=== PATIENT | female | born 1965 | race Caucasian/White ===

== ENCOUNTER 2018-12-07 21:07 | Inpatient (IN) ==
[2018-12-07] MEDS ORDERED: KETOROLAC 30 MG/1 ML VIAL IV STA (22:07)
[2018-12-07 22:13] LABS: Basophils # 0.1 10*3/uL (0.0-0.2); Basophils % 0.5 % (0.0-0.8); Eosinophils # 0.2 10*3/uL (0.0-0.87); Eosinophils % 1.7 % (0.00-10.9); Hematocrit 41.6 VOL% (35.7-47.0); Hemoglobin 13.7 GM/DL (12.0-16.0); Immature Granulocytes % 0.4 %; Immature Granulocytes Absolute 0.05 #; Lymphocytes # 2.6 10*3/uL (1.4-4.0); Lymphocytes % 23.2 % (21.3-54.2); Mean Corpuscular HGB Conc 32.9 GM/DL (32-36); Mean Corpuscular Volume 93.9 FL (87-102); Mean Platelet Volume 10.4 FL (9.6-12.0); Monocytes % 6.7 % (1.7-12.7); Neutrophils % 67.5 % (38.7-73.9); Platelet Count 258 T/CUMM (130-400); Red Blood Count 4.43 MC/CUMM (3.8-5.5); White Blood Count 11.1 T/CUMM (4-12)
[2018-12-07 22:25] LABS: Bilirubin,Total 0.4 MG/DL (0.2-1.0); Osmolality,Calculated 275.5 MOS/KG (273-304); Total Protein 7.7 G/DL (6.4-8.3)
[2018-12-08] MEDS ORDERED: metroNIDAZOLE INJ 500 MG in PREMIX 1 EACH IV ONE (01:23)
[2018-12-08] MEDS ORDERED: CEFEPIME 2,000 MG in SYRINGE 1 EACH IV ONE (01:23)
[2018-12-08] MEDS ORDERED: CEFEPIME 2,000 MG VIAL ONE (01:31)
[2018-12-08] MEDS ORDERED: SODIUM CHLORIDE 0.9% 100 ML IV ONE (01:31)
[2018-12-08] MEDS ORDERED: metroNIDAZOLE 500 MG/100 ML PREMIX IV ONE (01:31)
[2018-12-08] MEDS ORDERED: ONDANSETRON 4 MG/2 ML VIAL IV PRN (08:25)
[2018-12-08] MEDS ORDERED: ACETAMINOPHEN 325 MG TABLET PO PRN (08:25)
[2018-12-08] MEDS ORDERED: ACETAMINOPHEN 325 MG TABLET PO ONE (10:30)
[2018-12-08] MEDS: metroNIDAZOLE INJ 500 MG in PREMIX 1 EACH IV SCH ×2 (10:32→17:14)
[2018-12-08] MEDS: CEFEPIME 2,000 MG in SYRINGE 1 EACH IV SCH ×2 (11:41→17:10)
[2018-12-08] MEDS: DULoxetine 30 MG CAPSULE PO SCH (14:05)
[2018-12-08] MEDS: amLODIPine 5 MG TABLET PO SCH (14:05)
[2018-12-08] MEDS ORDERED: ESTROGENS (CONJ) 0.9 MG TABLET PO SCH (15:00)
[2018-12-08] MEDS ORDERED: ESTROGENS (CONJ) 0.45 MG TABLET PO SCH (17:00)
[2018-12-08] MEDS: CARVEDILOL 3.125 MG TABLET PO SCH (17:09)
[2018-12-08] MEDS: PITAVASTATIN 2 MG TABLET PO SCH (17:10)
[2018-12-08] MEDS: DOCUSATE SODIUM 100 MG CAPSULE PO SCH (21:21)
[2018-12-08] MEDS: ESTROGENS (CONJ) 0.3 MG TABLET PO SCH (21:22)
[2018-12-09] MEDS: CEFEPIME 2,000 MG in SYRINGE 1 EACH IV SCH ×3 (01:30→16:47)
[2018-12-09] MEDS: metroNIDAZOLE INJ 500 MG in PREMIX 1 EACH IV SCH ×3 (01:59→16:57)
[2018-12-09] MEDS ORDERED: SODIUM PHOSPHATE ENEMA 133 ML BOTTLE RECTAL ONE (06:00)
[2018-12-09 07:17] LABS: Basophils # 0.1 10*3/uL (0.0-0.2); Basophils % 1.1 % (0.0-0.8); Eosinophils # 0.2 10*3/uL (0.0-0.87); Eosinophils % 3.4 % (0.00-10.9); Hematocrit 40.1 VOL% (35.7-47.0); Hemoglobin 12.8 GM/DL (12.0-16.0); Immature Granulocytes % 0.5 %; Immature Granulocytes Absolute 0.03 #; Lymphocytes # 1.9 10*3/uL (1.4-4.0); Lymphocytes % 29.9 % (21.3-54.2); Mean Corpuscular HGB Conc 31.9 GM/DL (32-36); Mean Corpuscular Volume 96.9 FL (87-102); Mean Platelet Volume 10.6 FL (9.6-12.0); Monocytes % 11.9 % (1.7-12.7); Neutrophils % 53.2 % (38.7-73.9); Platelet Count 230 T/CUMM (130-400); Red Blood Count 4.14 MC/CUMM (3.8-5.5); Red Cell Distribution Width 13.2 % (9.3-17.3); White Blood Count 6.5 T/CUMM (4-12)
[2018-12-09] MEDS ORDERED: PROPOFOL 200 MG/20 ML VIAL IV ONE (10:00)
[2018-12-09] MEDS ORDERED: LIDOCAINE 2% 5 ML VIAL ONE (10:00)
[2018-12-09] MEDS ORDERED: LACTATED RINGERS 500 ML IV SCH (10:30)
[2018-12-09] MEDS: CARVEDILOL 3.125 MG TABLET PO SCH ×2 (11:59→16:47)
[2018-12-09] MEDS: EZETIMIBE 10 MG TABLET PO SCH (11:59)
[2018-12-09] MEDS: DOCUSATE SODIUM 100 MG CAPSULE PO SCH ×2 (11:59→21:56)
[2018-12-09] MEDS: PANTOPRAZOLE 40 MG TABLET PO SCH (11:59)
[2018-12-09] MEDS: amLODIPine 5 MG TABLET PO SCH (11:59)
[2018-12-09] MEDS: ASPIRIN EC 81 MG TABLET PO SCH (11:59)
[2018-12-09] MEDS: DULoxetine 30 MG CAPSULE PO SCH (14:09)
[2018-12-09] MEDS: ESTROGENS (CONJ) 0.3 MG TABLET PO SCH (14:22)
[2018-12-09] MEDS: PITAVASTATIN 2 MG TABLET PO SCH (16:47)
[2018-12-09] MEDS ORDERED: ESTROGENS (CONJ) 0.3 MG TABLET PO SCH (21:00)
[2018-12-10] MEDS: CEFEPIME 2,000 MG in SYRINGE 1 EACH IV SCH ×2 (01:55→09:10)
[2018-12-10] MEDS: metroNIDAZOLE INJ 500 MG in PREMIX 1 EACH IV SCH ×2 (02:30→09:10)
[2018-12-10 07:46] VITALS: BP 150/76
[2018-12-10] MEDS: DULoxetine 30 MG CAPSULE PO SCH (09:03)
[2018-12-10] MEDS: ASPIRIN EC 81 MG TABLET PO SCH (09:04)
[2018-12-10] MEDS: DOCUSATE SODIUM 100 MG CAPSULE PO SCH (09:04)
[2018-12-10] MEDS: PANTOPRAZOLE 40 MG TABLET PO SCH (09:04)
[2018-12-10] MEDS: amLODIPine 5 MG TABLET PO SCH (09:04)
[2018-12-10] MEDS: EZETIMIBE 10 MG TABLET PO SCH (09:04)
[2018-12-10] MEDS: CARVEDILOL 3.125 MG TABLET PO SCH (09:04)
== END 2018-12-10 11:15 | disposition home or self-care (01) | DRG 395 ==
LOC: N.ED 21:07 → N.2E 12-08 01:58 → N.EDINP 12-08 07:31 → N.2E 12-08 07:57
PROVIDERS: ADMIT Family Medicine; ATTEND Family Medicine

== ENCOUNTER 2022-07-22 14:25 | Inpatient (IN) ==
[2022-07-22] MEDS ORDERED: ACETAMINOPHEN 325 MG TABLET PO PRN (14:48)
[2022-07-22] MEDS ORDERED: KETOROLAC 10 MG TABLET PO PRN (14:48)
[2022-07-22] MEDS ORDERED: ONDANSETRON 4 MG/2 ML VIAL IV PRN (14:48)
[2022-07-22] MEDS: oxyCODONE/ACETAMINOPHEN 5-325 MG TABLET PO PRN (17:37)
[2022-07-22 18:04] LABS: Albumin 3.1 G/DL (3.4-5.0); Bilirubin,Total 0.5 MG/DL (0.20-1.00); Calcium 8.7 MG/DL (8.5-10.1); Osmolality,Calculated 268.1 MOS/KG (273-304); Potassium 3.6 MMOL/L (3.5-5.1); Total Protein 7.4 G/DL (6.4-8.2)
[2022-07-22] MEDS: ERTAPENEM 1,000 MG in SODIUM CHLORIDE 0.9% 100 ML IV SCH (18:15)
[2022-07-22] MEDS: SODIUM CHLORIDE 0.9% 1,000 ML IV SCH (18:15)
[2022-07-22] MEDS ORDERED: ENOXAPARIN 40 MG/0.4 ML SYRINGE SUBCUT SCH (21:00)
[2022-07-22] MEDS: VALSARTAN 160 MG TABLET PO SCH (21:39)
[2022-07-22] MEDS: DULoxetine 30 MG CAPSULE PO SCH (21:39)
[2022-07-22] MEDS: ASCORBIC ACID 500 MG TABLET PO SCH (21:40)
[2022-07-22] MEDS: DOCUSATE SODIUM 100 MG CAPSULE PO SCH (21:40)
[2022-07-22] MEDS: ASPIRIN EC 81 MG TABLET PO SCH (21:40)
[2022-07-22] MEDS: MULTIVITAMIN (CENTRUM) TABLET PO SCH (21:41)
[2022-07-22] MEDS: EZETIMIBE 10 MG TABLET PO SCH (21:41)
[2022-07-22] MEDS: busPIRone 10 MG TABLET PO SCH (21:41)
[2022-07-22] MEDS: VANCOMYCIN INJ 1,500 MG in SODIUM CHLORIDE 0.9% 500 ML IV SCH (21:45)
[2022-07-22] MEDS: FENOFIBRATE 160 MG TABLET PO SCH (21:57)
[2022-07-22] MEDS: carvediloL 6.25 MG TABLET PO SCH (21:57)
[2022-07-23] MEDS: SODIUM CHLORIDE 0.9% 1,000 ML IV SCH ×3 (05:35→17:17)
[2022-07-23] MEDS: oxyCODONE/ACETAMINOPHEN 5-325 MG TABLET PO PRN ×2 (08:26→20:27)
[2022-07-23] MEDS: PANTOPRAZOLE 40 MG TABLET PO SCH (08:26)
[2022-07-23] MEDS: DOCUSATE SODIUM 100 MG CAPSULE PO SCH ×2 (08:26→20:27)
[2022-07-23] MEDS: VANCOMYCIN INJ 1,500 MG in SODIUM CHLORIDE 0.9% 500 ML IV SCH ×2 (08:26→20:28)
[2022-07-23] MEDS ORDERED: ONDANSETRON 4 MG/2 ML VIAL ONE (12:05)
[2022-07-23] MEDS ORDERED: LIDOCAINE 2% 5 ML VIAL ONE (12:05)
[2022-07-23] MEDS ORDERED: propofoL 200 MG/20 ML VIAL IV ONE (12:05)
[2022-07-23] MEDS ORDERED: MIDAZOLAM 2 MG/2 ML VIAL ONE (12:07)
[2022-07-23] MEDS ORDERED: fentaNYL 100 MCG/2 ML VIAL ONE (12:07)
[2022-07-23] MEDS ORDERED: FAMOTIDINE 20 MG/2 ML VIAL IV ONE (12:13)
[2022-07-23] MEDS ORDERED: SCOPOLAMINE 1.5 MG PATCH TRANSDERM ONE (12:34)
[2022-07-23] MEDS ORDERED: DEXAMETHASONE 4 MG/1 ML VIAL ONE (12:57)
[2022-07-23] MEDS ORDERED: LACTATED RINGERS 1,000 ML IV SCH (13:00)
[2022-07-23] MEDS ORDERED: SEVOFLURANE 1 UNIT/15 MINUTE INH ONE (13:10)
[2022-07-23] MEDS ORDERED: MEPERIDINE 25 MG/1 ML VIAL ONE (13:46)
[2022-07-23] MEDS ORDERED: ONDANSETRON 4 MG/2 ML VIAL IV PRN (13:47)
[2022-07-23] MEDS: MEPERIDINE 25 MG/1 ML VIAL IV PRN ×2 (13:48→13:58)
[2022-07-23] MEDS: carvediloL 6.25 MG TABLET PO SCH (18:19)
[2022-07-23] MEDS: ERTAPENEM 1,000 MG in SODIUM CHLORIDE 0.9% 100 ML IV SCH (18:20)
[2022-07-23] MEDS: VALSARTAN 160 MG TABLET PO SCH (20:26)
[2022-07-23] MEDS: DULoxetine 30 MG CAPSULE PO SCH (20:26)
[2022-07-23] MEDS: ASPIRIN EC 81 MG TABLET PO SCH (20:27)
[2022-07-23] MEDS: EZETIMIBE 10 MG TABLET PO SCH (20:27)
[2022-07-23] MEDS: MULTIVITAMIN (CENTRUM) TABLET PO SCH (20:27)
[2022-07-23] MEDS: ASCORBIC ACID 500 MG TABLET PO SCH (20:27)
[2022-07-23] MEDS: FENOFIBRATE 160 MG TABLET PO SCH (20:27)
[2022-07-23] MEDS: busPIRone 10 MG TABLET PO SCH (20:27)
[2022-07-24] MEDS: SODIUM CHLORIDE 0.9% 1,000 ML IV SCH ×3 (03:34→17:35)
[2022-07-24] MEDS: PANTOPRAZOLE 40 MG TABLET PO SCH (08:47)
[2022-07-24] MEDS: VANCOMYCIN INJ 1,500 MG in SODIUM CHLORIDE 0.9% 500 ML IV SCH ×2 (08:47→21:49)
[2022-07-24] MEDS: DOCUSATE SODIUM 100 MG CAPSULE PO SCH ×2 (08:47→21:48)
[2022-07-24] MEDS: oxyCODONE/ACETAMINOPHEN 5-325 MG TABLET PO PRN (13:55)
[2022-07-24] MEDS ORDERED: MORPHINE 2 MG/1 ML SYRINGE IV ONE (16:59)
[2022-07-24] MEDS: SODIUM HYPOCHLORITE 0.25% IRRIG 473 ML BOTTLE TOP SCH (17:35)
[2022-07-24] MEDS: ERTAPENEM 1,000 MG in SODIUM CHLORIDE 0.9% 100 ML IV SCH (17:37)
[2022-07-24] MEDS: carvediloL 6.25 MG TABLET PO SCH (17:37)
[2022-07-24] MEDS: VALSARTAN 160 MG TABLET PO SCH (21:48)
[2022-07-24] MEDS: EZETIMIBE 10 MG TABLET PO SCH (21:48)
[2022-07-24] MEDS: DULoxetine 30 MG CAPSULE PO SCH (21:48)
[2022-07-24] MEDS: ASCORBIC ACID 500 MG TABLET PO SCH (21:48)
[2022-07-24] MEDS: ASPIRIN EC 81 MG TABLET PO SCH (21:48)
[2022-07-24] MEDS: busPIRone 10 MG TABLET PO SCH (21:48)
[2022-07-24] MEDS: MULTIVITAMIN (CENTRUM) TABLET PO SCH (21:48)
[2022-07-24] MEDS: FENOFIBRATE 160 MG TABLET PO SCH (21:49)
[2022-07-25] MEDS: SODIUM CHLORIDE 0.9% 1,000 ML IV SCH ×2 (04:55→08:37)
[2022-07-25] MEDS: VANCOMYCIN INJ 1,500 MG in SODIUM CHLORIDE 0.9% 500 ML IV SCH (08:34)
[2022-07-25] MEDS: PANTOPRAZOLE 40 MG TABLET PO SCH (08:35)
[2022-07-25] MEDS: DOCUSATE SODIUM 100 MG CAPSULE PO SCH (08:35)
[2022-07-25] MEDS: SODIUM HYPOCHLORITE 0.25% IRRIG 473 ML BOTTLE TOP SCH (08:36)
[2022-07-25 11:49] VITALS: BP 172/79
[2022-07-25] MEDS: oxyCODONE/ACETAMINOPHEN 5-325 MG TABLET PO PRN (13:12)
[2022-07-25] MEDS ORDERED: HEPARIN LOCK FLUSH 500 UNIT/5 ML SYRINGE IV PRN (13:46)
== END 2022-07-25 15:29 | disposition home or self-care (01) | DRG 920 ==
LOC: N.3E 17:00
PROVIDERS: ADMIT Family Medicine; ATTEND Family Medicine